=== PATIENT | female | born 2000 | race Caucasian/White ===

== ENCOUNTER 2024-03-26 02:00 | Inpatient (IN) | payer BC, SELFPAY ==
[2024-03-25 19:35] VITALS: BP 141/86
[2024-03-25 19:55] LABS: Urine Albumin Negative (Neg - Trace); Urine Bilirubin Negative (Negative); Urine Character Clear (Clear); Urine Color Yellow; Urine Glucose Negative (Negative); Urine Ketone Negative (Negative); Urine Leukocyte Trace (Negative); Urine Nitrite Negative (Negative); Urine Occult Blood Negative (Negative); Urine Urobilinogen Negative (Neg - 1+)
[2024-03-25 20:05] LABS: Urine Bacteria Few (Negative); Urine Red Blood Cell 0-2 /HPF (0-2); Urine Squamous Cell 0-2 /LPF (Few); Urine White Cell 26-30 /HPF (0-5)
[2024-03-25 21:19] VITALS: BP 125/94
[2024-03-25] MEDS: DILAUDID 0.5 MG IV (21:46)
[2024-03-25] MEDS: ZOFRAN 4 MG IV (21:47)
[2024-03-25] MEDS: NSS 1000 IV (21:47)
[2024-03-25] MEDS: TORADOL 15 MG IV (21:48)
[2024-03-25 22:08] LABS: % Basophils 0.3 % (0-2); % Immature Granulocytes 0.4 % (0-0.5); % Lymphocytes 8.7 % (20.5-51.1); % Monocytes 8.9 % (1.7-9.3); % Neutrophils 81.7 % (42.2-75.2); Absolute Immature Granulocytes 0.1 10^3/uL (0-0.05); Absolute Lymphocytes 1.1 10^3/uL (1.2-3.4); Absolute Monocytes 1.1 10^3/uL (0.1-0.6); Absolute Neutrophils 9.8 10^3/uL (1.4-6.5); Hematocrit 38.4 % (37.0-47.0); Hemoglobin 13.9 g/dL (12.0-16.0); Mean Corp Hgb Conc. 36.2 g/dL (33.0-37.0); Mean Corpuscular Hgb 31.7 pg (27.0-31.0); Mean Corpuscular Volume 87.5 fL (81.0-99.0); Nucleated Red Blood Cells % 0 %; Platelet Count 264 10^3/uL (130-400); Red Blood Cell Count 4.39 10^6/uL (4.20-5.40); Red Cell Dist. Width 12.1 % (11.5-14.5)
[2024-03-25 22:24] LABS: HCG, Serum Qualitative Screen Negative; Lactic Acid 0.7 mmol/L (0.7-2.0)
[2024-03-25 22:27] LABS: ALT (SGPT) 17 U/L (0-35); AST (SGOT) 26 U/L (14-36); Albumin 4.3 g/dl (3.5-5.0); Alkaline Phosphatase 49 U/L (38-126); Blood Urea Nitrogen 7 mg/dl (7-17); Calcium 9.2 mg/dl (8.4-10.2); Carbon Dioxide 22 mmol/L (22-30); Chloride 100 mmol/L (98-107); Glucose 110 mg/dl (70-99); Potassium 3.9 mmol/L (3.5-5.1); Sodium 135 mmol/L (135-145); Total Bilirubin 0.5 mg/dl (0.2-1.3); Total Protein 6.8 g/dl (6.3-8.2); eGFR > 60.00
[2024-03-25 22:46] VITALS: BP 111/72
[2024-03-26] VITALS (17 sets, daily range): BP systolic 95–135; BP diastolic 51–89; BMI 18.8
--- NOTE | 2024-03-26 00:05 | ED.GENMED ---
History of Present Illness
General
Chief Complaint: Flank Pain
Source: patient and family
Exam Limitations: none
Time Seen by Provider: 03/25/24 21:36
Nursing documentation reviewed up to this point in time: agreed with
History of Present Illness
History of Present Illness:
Patient is a 23-year-old female who presents to the emergency department with fever and chills since yesterday and left flank pain for the past 2 days. Patient has been nauseous with occasional dry heaves. Patient denies diarrhea. Patient states
she is freezing at this time. Patient has a history of kidney stones. Patient has had some pain with urination and small amounts of urine but no hematuria. Patient denies any recent illnesses or injuries. Patient's last period was 2 weeks ago.
Past History
Past History
ED Past Medical History: Other (Kidney stones)
ED Past Surgical History: Appendectomy
Social History
Tobacco: Non-smoker
Review of Systems
Review of Systems
All Other Systems: ROS reviewed and negative except as documented in HPI and ROS
Constitutional: Reports fever, fatigue and chills
EENT: Reports no symptoms
Respiratory: Reports no symptoms
Cardiac: Reports no symptoms
ABD/GI: Reports abdominal pain, nausea, vomiting and anorexia; Denies diarrhea or constipated
: Reports flank pain and difficulty voiding; Denies bleeding
Musculoskeletal: Reports back pain
Skin: Reports no symptoms
Neurological: Reports no symptoms
Hematologic/Lymphatic: Reports no symptoms
Psychiatric: Reports no symptoms
Phy Exam
Physical Exam
Physical Exam:
Physical Exam
General: significant distress, alert and appropriate, well nourished, dry mucous membranes
HENT: Normocephalic, supple with no lymphadenopathy, no thyromegaly
Eyes: Clear sclera, conjuctiva without injection
Heart: Regular rhythm and rate. No S3, S4. No murmur.
Lungs: No respiratory distress, no stridor, lung sounds clear and equal bilaterally
Abdomen: Soft, mild lower abdominal tenderness without guarding or rebound, no organomegaly, significant left CVA tenderness, BS good
Neuro: Alert and oriented x 3, CN II - XII intact, no motor focality, no cerebellar dysfunction
Skin: no rash
Psychiatric: well kept. interactive and cooperative
Extremities: No edema, cyanosis, tenderness, Good and equal peripheral pulses.
Course
Orders/Labs/Results
Orders:
Orders
03/25/24 19:42
Urinalysis Reflex To Culture Urgent
Date Specimen was Collected: 03/25/24
Time Specimen was Collected: 19:41
Urine Microscopic Reflex Cult Urgent
Urine Culture Urgent
GRIS Source: U
Specimen Description:
Date Specimen was Collected: 03/25/24
Time Specimen was Collected: 19:41
03/25/24 19:44
EKG [Electrocardiogram (*1)] Urgent
Reason for Study: Tachycardia
EKG- Treatment ONCE
03/25/24 21:41
0.9% Sodium Chloride 1000 ml [Nss] 1,000 ml IV BOLUS
HYDROmorphone [Dilaudid] 0.5 mg IV NOW STA
Ketorolac [Toradol] 15 mg IV NOW STA
Ondansetron Injectable [Zofran] 4 mg IV NOW STA
Test Result ONCE
US Renal With Bladder Urgent
Comment: bladder not full ok, looking at ureteral jets
Reason For Exam: left flank pain
03/25/24 21:46
Complete Blood Count/With Diff Urgent
Comprehensive Metabolic Panel Urgent
HCG, Serum Qualitative Screen Urgent
Lactic Acid Q4H
Comment: CANCEL 2nd LACTIC ACID IF 1st LACTIC ACID IS LESS THAN 2
Blood Culture Routine
GRIS Source: Blood/Venous
Specimen Description:
Blood Culture Urgent
GRIS Source: Blood/Venous
Specimen Description:
03/25/24 23:31
Acetaminophen [Tylenol] 1,000 mg PO NOW STA
HYDROmorphone [Dilaudid] 0.5 mg IV NOW STA
03/26/24 01:45
Lactic Acid Q4H
Comment: CANCEL 2nd LACTIC ACID IF 1st LACTIC ACID IS LESS THAN 2
Abnormal Lab Results
03/25/24 03/25/24
19:42 21:46
WBC 12.0 H 10^3/uL
(4.8-10.8)
MCH 31.7 H pg
(27.0-31.0)
Abs Immat Gran (auto) 0.1 H 10^3/uL
(0-0.05)
Absolute Neuts (auto) 9.8 H 10^3/uL
(1.4-6.5)
Absolute Lymphs (auto) 1.1 L 10^3/uL
(1.2-3.4)
Absolute Monos (auto) 1.1 H 10^3/uL
(0.1-0.6)
Neutrophils % 81.7 H %
(42.2-75.2)
Lymphocytes % 8.7 L %
(20.5-51.1)
Glucose 110 H mg/dl
(70-99)
Leukocyte Esterase Rfl Trace A
(Negative)
Urine WBC (Reflex) 26-30 A /HPF
(0-5)
Urine Bacteria (Reflex) Few A
(Negative)
03/25/24 21:46
03/25/24 21:46
Vital Signs
Initial and Last Documented VS:
Initial Vital Signs
Temp Pulse Resp BP Pulse Ox
100.4 F H 140 20 141/86 97
03/25/24 19:35 03/25/24 19:35 03/25/24 19:35 03/25/24 19:35 03/25/24 19:35
Last Documented Vital Signs
Temp Pulse Resp BP Pulse Ox
99.9 F 93 16 111/72 98
03/25/24 22:46 03/25/24 22:46 03/25/24 22:46 03/25/24 22:46 03/25/24 22:46
*Radiology
Radiology exam reviewed: radiology read reviewed (Radiologist said there is mild hydro nephrosis and hydroureter and no jet on the left but unable to find the stone)
*Pulse Oximetry
Patient hypoxic: no
*EKG
Interpreted by ED Provider?: Yes
EKG Intrepretation Date: 03/26/24
EKG Intrepretation Time: 00:09
Interpretation: normal
Comparison EKG: no comparison EKG present
Heart Rate: 113
Rate: tachycardiac
Rhythm: sinus
Otis: normal axis
Interval: normal interval
QRS Pattern: normal QRS
Ischemia: no ischemia
*Filbert Grower Interpretation
Rate: Filbert Grower- N/A
*Critical Care Note
Total Time (30-74mins, 75-104mins- exclusive of procedures): Not Applicable
ED Attending Note
-
Portions of this chart may have been created with voice recognition software.� Occasional wrong word or��sound alike� substitutions may have occurred due to the inherent limitations of voice recognition software.
Discharge Plan
Departure
Patient Disposition: Admit
Date of Disposition: 03/26/24
Time of Disposition: 00:18
Admit to: Med/Surg
Presentation/result/management discussed w/ accepting MD/DO: Urology
Patient with high blood pressure during this ER visit?: No
Condition: Serious
Covid-19: Not Applicable
Discharge Problem:
Hydroureter on left, Ureterolithiasis, Fever
Referrals:
Young Peña, DO [Family Provider] -
Interventions
Interventions:
*Risk Screen - Suicide Last Done: 03/25/24 19:35
*General Assessment Last Done: 03/25/24 22:30
*Neglect/Abuse Screening Last Done: 03/25/24 22:30
*ED COVID-19 Vaccine History Last Done: 03/25/24 22:30
WE-Mzudge-Idbgvessws Assessment Last Done: 03/25/24 22:31
ED-Female Genitourinary Assessment Last Done: 03/25/24 22:37
Discharge Date and Time
Print Language: SWISS
[2024-03-26] MEDS: TYLENOL 1000 MG PO (00:19)
[2024-03-26] MEDS: DILAUDID 0.5 MG IV ×2 (00:20→07:40)
--- NOTE | 2024-03-26 00:48 | HPS.HSE ---
Family Physician
-
Family Physician: Young Peña
Chief Complaint
-
Abd Pain, Fevers / Chills
History of Present Illness
Patient is a 23y F with PMH significant for kidney stones who presents to ED complaining of flank pain, nausea, fevers and chills. Patient states that she initially developed L flank pain on Saturday. She has had similar discomfort multiple times
in the past related to kidney stones. She states that she has a 'large kidney stone' on the L that was diagnosed 4 years ago and has not passed.
Today, patient noted significant increase in her pain, fevers / chills, nausea without emesis and general malaise.
Patient states that she has never had these accompanying symptoms in the past.
She has never had ureteroscopy / intervention for kidney stones in the past.
Medical History
Past Medical History
Past Medical History: Reports Other
Additional Past Medical History:
ADHD
Bipolar Depression
Past Surgical History: Reports Other
Additional Past Surgical History:
Appendectomy
Social History
Tobacco: Vaping (Daily vaping.)
Alcohol: Occasional
Drug: Marijuana (Occasional marijuana smoker. No other recreational drugs.)
Family History
Family History: Not pertinent
Allergies / Home Medications
Allergies reflects when Allergies were last updated in [facility].
Home Medications with original date entered in [facility]
Allergy/Medication List:
Allergies
Allergy/AdvReac Type Severity Reaction Status Date / Time
sulfamethoxazole Allergy Hives Verified 03/25/24 19:39
[From Bactrim]
trimethoprim [From Bactrim] Allergy Hives Verified 03/25/24 19:39
Home Medications
dextroamphetamine-amphetamine 20 mg tablet (Adderall) 20 mg PO DAILY 03/26/24
lamotrigine 100 mg tablet (Lamictal) 100 mg PO DAILY 03/26/24
Review of Systems
-
History Source: Patient
A 12 point ROS was completed and negative except as noted: Yes
Constitutional: Reports Fever, Fatigue and Chills
EENT: Denies Sore Throat
Respiratory: Denies Cough or Trouble Breathing
Cardiac: Reports Chest Pain; Denies Diaphoresis or Palpitations
Abdomen/GI: Reports Abdominal Pain and Nausea; Denies Vomiting, Diarrhea or Constipated
: Reports Flank Pain; Denies Dysuria, Frequency or Bleeding
Neurological: Reports Headache; Denies Dizzy
Psych: Denies Depression or Anxiety
Physical Exam
Vital Signs
Vital Signs
Temp Pulse Resp BP Pulse Ox
99.9 F 92 18 115/75 99
03/25/24 22:46 03/26/24 00:16 03/26/24 00:16 03/26/24 00:16 03/26/24 00:16
Physical Exam
General: Other (23y F in mild distress due to pain.)
HEENT: Moist mucous membranes and PERRLA
Respiratory: Clear; No Wheezes, Rales or Rhonchi
Cardiac: S1/S2 and Regular Rhythm; No Murmur
GI: Soft, Non Distended, Normal Bowel Sounds and Other (Pos tenderness L abdomen with voluntary guarding.)
Genito-urinary: Costovertebral angle tend (Left)
Musculoskeletal: No Clubbing, No Cyanosis and No Edema
Neuro: AO x 3
Laboratory Results
-
03/25/24 21:46
03/25/24 21:46
Laboratory Results
Lactic Acid 0.7 mmol/L (0.7-2.0) 03/25/24 21:46
Total Bilirubin 0.5 mg/dl (0.2-1.3) 03/25/24 21:46
AST 26 U/L (14-36) 03/25/24 21:46
ALT 17 U/L (0-35) 03/25/24 21:46
Alkaline Phosphatase 49 U/L (38-126) 03/25/24 21:46
Impression/Plan
-
A/P: Patient is an 23y F with PMH significant for kidney stones who presents to ED c/o L flank pain since Saturday and fevers / chills, nausea today.
Left Ureteral Stone / Obstructive Uropathy
UTI
Sepsis secondary to the above
- Admit for further evaluation and treatment.
- US suggests L mid-ureteral stone with associated hydro.
- CT scan ordered / pending in the ED.
- Patient presents with fever, leukocytosis, tachycardia and UA / symptoms consistent with infection.
- Continue IV abx pending culture data.
- Supportive care including pain control, IVFs, antiemetics, etc.
- Urology to evaluate patient this evening - likely for OR / stone removal / stent.
- Follow for clinical improvement.
Bipolar Depression
- Stable. Continue Lamictal.
ADHD
- Stable. Can hold Adderall acutely.
DVT Prophylaxis: SCDs
Code Status: Full
[2024-03-26] MEDS: MAXIPIME 2000 MG IV ×4 (01:06→23:01)
--- NOTE | 2024-03-26 01:10 | CONS.URO ---
Consultation
-
Performing Provider: Peffer
Reason for Consultation: Sepsis, ureteral stone
Medical History
History of Present Illness
23F with history of kidney stones in the past
Presenting with 2 days of L flank pain and fevers, febrile to 102.5 in ED
US showing L hydro
CT showing 6mm L distal ureteral stone
Past Medical History
Past Medical History: Other (Kidney stones, ADHD Bipolar Depression)
Social History
Tobacco: Vaping
Alcohol: None
Drug: Marijuana
Family History
Family History: Reviewed & Not Pertinent
Allergies/Home Medications
Allergies
Allergy/AdvReac Type Severity Reaction Status Date / Time
metoclopramide [From Reglan] Allergy Unknown Verified 03/26/24 00:55
sulfamethoxazole Allergy Hives Verified 03/25/24 19:39
[From Bactrim]
trimethoprim [From Bactrim] Allergy Hives Verified 03/25/24 19:39
Home Medications
�Medication �Instructions �Recorded �Confirmed �Type
dextroamphetamine-amphetamine 20 20 mg PO DAILY 03/26/24 03/26/24 History
mg tablet (Adderall)
lamotrigine 100 mg tablet 100 mg PO DAILY 03/26/24 03/26/24 History
(Lamictal)
Physical Exam
Vital Signs
Vital Signs
Temp Pulse Resp BP Pulse Ox
99.9 F 92 18 115/75 99
03/25/24 22:46 03/26/24 00:16 03/26/24 00:16 03/26/24 00:16 03/26/24 00:16
Lab / Testing Results
Laboratory Results
03/25/24 21:46
03/25/24 21:46
Physical Exam
General: Well Developed and Well Nourished
Genito-urinary: Costovertebral Angle Tend
Neuro: AO x 3
Psych: Calm and Intact Judgement
Assessment / Plan
-
23F with fevers and L ureteral stone
- OR for L ureteral stent
- Broad spectrum antibiotics
- Urine and blood cultures
--- NOTE | 2024-03-26 02:04 | W.IMMPOSTOP ---
Surgical Immed Post Op Note
-
Primary Surgeon: Peffer
Assisting Surgeon: none
Pre-op Diagnosis: sepsis, L ureteral stone
Post-op Diagnosis: same
Procedure Performed: cystoscopy, L ureteral stent
Anesthesia Type: general
Specimen / Cultures: urine from L kidney Cx
Estimated Blood Loss: none
Complications: none
Operative Findings: impacted stone
[2024-03-26] MEDS: DILAUDID 0.25 MG IV ×2 (02:35→22:57)
[2024-03-26] MEDS: DETROL LA 4 MG PO (03:01)
[2024-03-26] MEDS: Pyridium 200 MG PO ×4 (03:01→22:57)
--- NOTE | 2024-03-26 03:30 | PTCARENOTE ---
Pt admitted to 436-2 from PACU. AAOx3. c/o /10 pelvic pressure/discomfort. VSS. Ambulated to bathroom with standby. Voided 225 ccs jean/orange urine, urine strained. Call ang within reach.
[2024-03-26] MEDS: NSS 1000 IV ×3 (03:40→16:18)
[2024-03-26] MEDS: STERILE WATER FOR INJECTION 10 ML IV ×3 (07:57→23:01)
[2024-03-26 08:38] LABS: Hematocrit 37.3 % (37.0-47.0); Hemoglobin 13.4 g/dL (12.0-16.0); Mean Corp Hgb Conc. 35.9 g/dL (33.0-37.0); Mean Corpuscular Hgb 32.8 pg (27.0-31.0); Mean Corpuscular Volume 91.2 fL (81.0-99.0); Mean Platelet Volume 9.6 fL (7.4-10.4); Platelet Count 229 10^3/uL (130-400); Red Blood Cell Count 4.09 10^6/uL (4.20-5.40); Red Cell Dist. Width 12.3 % (11.5-14.5); White Blood Cell Count 10.3 10^3/uL (4.8-10.8)
--- NOTE | 2024-03-26 08:50 | W.PN.HOSP.TC ---
Today's Communication/Plan
-
Antibiotics. Pain control. Urology reeval.
Assessment / Plan
Assessment / Plan
Physical exam:
General: Well Developed, Well Nourished and No Apparent Distress
HEENT: Normocephalic, Atraumatic and Moist Mucous Membranes
Respiratory: Clear to Auscultation; Negative Wheezes, Rales or Rhonchi
Cardiac: Regular Rhythm and S1/S2
GI: Tenderness left flank area. Soft, tender and Nondistended
Musculoskeletal: No Clubbing, No Cyanosis and No Edema
Neuro: Awake, Alert and Oriented
Psych: Calm
A/P:
Left Ureteral Stone / Obstructive Uropathy
UTI
Sepsis secondary to the above
- Status post cystoscopy and left ureteral stent by urology
- Continue antibiotics and pain control-increased pain meds and added some other. Discussed with urology via [facility] text today.
Prior to today:
- Patient presents with fever, leukocytosis, tachycardia and UA / symptoms consistent with infection.
- Continue IV abx pending culture data.
- Supportive care including pain control, IVFs, antiemetics, etc.
- Urology to evaluate patient this evening - likely for OR / stone removal / stent.
- Follow for clinical improvement.
Bipolar Depression
- Stable. Continue Lamictal.
ADHD
- Stable. Can hold Adderall acutely.
DVT Prophylaxis: SCDs
Code Status: Full
Anticipated Discharge: 24 - 48 hours
Subjective/Interval History
-
Date of Service: March 26, 2024
Patient was having increased flank pain this morning. After few adjustments and after discussion with urology pain has improved. Afebrile
Objective Data
-
Labs:
Laboratory Results
03/25/24 03/26/24
21:46 07:31
WBC 12.0 H 10.3
Hgb 13.9 13.4
Hct 38.4 37.3
Plt Count 264 229
Sodium 135 Pending
Potassium 3.9 Pending
Chloride 100 Pending
Carbon Dioxide 22 Pending
BUN 7 Pending
Creatinine 0.7 Pending
Glucose 110 H Pending
Calcium 9.2 Pending
Total Bilirubin 0.5
AST 26
ALT 17
Alkaline Phosphatase 49
Vital Signs:
Vital Signs
Temp Pulse Resp BP Pulse Ox
98 F 52 16 118/80 99
03/26/24 07:25 03/26/24 07:25 03/26/24 07:25 03/26/24 07:25 03/26/24 07:25
I&O
03/25/24 03/26/24 03/27/24
06:59 06:59 06:59
Intake Total 800 / 800
Output Total 225 / 225
Balance 575 / 575
[2024-03-26 09:00] LABS: Blood Urea Nitrogen 10 mg/dl (7-17); Calcium 8.5 mg/dl (8.4-10.2); Carbon Dioxide 24 mmol/L (22-30); Chloride 104 mmol/L (98-107); Estimated Creatinine Clearance 119 ml/min; Glucose 135 mg/dl (70-99); Potassium 4.5 mmol/L (3.5-5.1); Sodium 138 mmol/L (135-145); eGFR > 60.00
[2024-03-26] MEDS: FLOMAX 0.4 MG PO (09:24)
[2024-03-26] MEDS: LAMICTAL 100 MG PO (09:24)
[2024-03-26] MEDS: DILAUDID 1 MG IV (10:59)
[2024-03-26] MEDS: TORADOL 30 MG IV ×2 (11:50→19:33)
[2024-03-26] MEDS: MORPHINE SULFATE 2 MG IV ×2 (14:43→19:35)
--- NOTE | 2024-03-26 14:50 | CM ---
Patient lives with spouse and 3 children in a 1 story home with 5 steps to enter, patient is independent with adl's and ambulation, no dme, patient drives, home when stable no needs.
PCP: Dr. Peña
Pharmacy: [facility].
Plan; Home no needs when stable.
[2024-03-27] VITALS (23 sets, daily range): BP systolic 98–129; BP diastolic 59–91
[2024-03-27] MEDS: MORPHINE SULFATE 2 MG IV ×3 (00:04→08:56)
[2024-03-27] MEDS: TORADOL 30 MG IV ×3 (04:14→19:56)
[2024-03-27] MEDS: NSS 1000 IV ×2 (04:15→17:57)
[2024-03-27] MEDS: LAMICTAL 100 MG PO (08:45)
[2024-03-27] MEDS: MAXIPIME 2000 MG IV (08:45)
[2024-03-27] MEDS: Pyridium 200 MG PO ×3 (08:45→23:21)
[2024-03-27] MEDS: FLOMAX 0.4 MG PO (08:45)
[2024-03-27] MEDS: STERILE WATER FOR INJECTION 10 ML IV (08:46)
--- NOTE | 2024-03-27 09:18 | W.PN.URO.CBU ---
Today's Communication / Plan
-
Renal US
Possible ureteroscopy today
Assessment / Plan
-
23F with fever/sepsis associated with obstructing L distal ureteral stone
- Severe stent colic/pain which is greater than typical
- Possible stent obstruction due to large impacted distal stone
- Renal US to eval for persistent
- NPO for possible OR today for ureteroscopy, laser lithotripsy, stent exchange
- Continue antibiotics pending cultures
- Blood cx negative so far
Diagnosis
-
Date of Service: March 27, 2024
-
Patient Diagnosis:
L ureteral stone
Fever/sepsis
Post Op Day: s/p ureteral stent 03/26
Subjective
-
ongoing severe flank and groin pain requiring narcotics
Objective
-
Vital Signs
Temp Pulse Resp BP Pulse Ox
98.4 F 68 18 117/74 97
03/27/24 07:17 03/27/24 07:17 03/27/24 07:17 03/27/24 07:17 03/27/24 07:17
Intake and Output
03/26/24 03/27/24 03/28/24
06:59 06:59 06:59
Intake Total 800 / 800 240 / 240
Output Total 225 / 225 750 / 750
Balance 575 / 575 -510 / -510
Intake:
Oral fluids 240 / 240
IV fluids (Total) 800 / 800 0 / 0
normosol 200 / 200
IV piggybacks 0 / 0
Output:
Urine, Voided 225 / 225 750 / 750
Other:
Number of approximated MODERATE 3
amounts of urine
Laboratory Results
03/26/24 07:31
03/26/24 07:31
Physical Exam
-
General - well developed, well nourished, moderate pain
Chest - clear
Abdomen - soft, non-tender
Skin - warm & dry with no rash
Neuro - AOx3, no motor deficits
--- NOTE | 2024-03-27 09:32 | W.PN.HOSP.TC ---
Today's Communication/Plan
-
IV antibiotics. Pain control. OR today.
Assessment / Plan
Assessment / Plan
Physical exam:
General: Well Developed, Well Nourished and No Apparent Distress
HEENT: Normocephalic, Atraumatic and Moist Mucous Membranes
Respiratory: Clear to Auscultation; Negative Wheezes, Rales or Rhonchi
Cardiac: Regular Rhythm and S1/S2
GI: Tenderness left flank area. Soft, tender and Nondistended
Musculoskeletal: No Clubbing, No Cyanosis and No Edema
Neuro: Awake, Alert and Oriented
Psych: Calm
A/P:
Left Ureteral Stone / Obstructive Uropathy
UTI
Sepsis secondary to the above
- Status post cystoscopy and left ureteral stent by urology. Continues to have pain and urology will take her to the OR today. Discussed with urology again today on 03/27.
- Continue antibiotics and pain control-increased pain meds and added some other. Discussed with urology via [place] text on 03/26.
-Urine culture with Enterococcus and will change antibiotics to IV ampicillin.
-Updated mother at bedside
Prior to today:
- Patient presents with fever, leukocytosis, tachycardia and UA / symptoms consistent with infection.
- Continue IV abx pending culture data.
- Supportive care including pain control, IVFs, antiemetics, etc.
- Urology to evaluate patient this evening - likely for OR / stone removal / stent.
- Follow for clinical improvement.
Bipolar Depression
- Stable. Continue Lamictal.
ADHD
- Stable. Can hold Adderall acutely.
DVT Prophylaxis: SCDs
Code Status: Full
Total time spent on today's encounter was 52 minutes which included time spent in counseling the patient/family regarding diagnosis and treatment plan as listed above, goals of care, and symptom management. Case was discussed with nursing staff,
specialists, and care coordinators/case management. All labs and imaging personally reviewed by me. Remainder the time spent in detailed review of previous records, lab data, imaging, and other medical provider documentation.
Anticipated Discharge: 24 - 48 hours
Subjective/Interval History
-
Date of Service: March 27, 2024
Patient continues to have pain in her left flank area today. She is very teary by the time of my evaluation and in distress because of pain. Discussed with urology and she will be taken to the OR.
Objective Data
-
Vital Signs:
Vital Signs
Temp Pulse Resp BP Pulse Ox
98.4 F 68 18 117/74 97
03/27/24 07:17 03/27/24 07:17 03/27/24 07:17 03/27/24 07:17 03/27/24 07:17
I&O
03/26/24 03/27/24 03/28/24
06:59 06:59 06:59
Intake Total 800 / 800 240 / 240
Output Total 225 / 225 750 / 750
Balance 575 / 575 -510 / -510
--- NOTE | 2024-03-27 11:59 | PTCARENOTE ---
single set of surgical wipes completed. Patient gown changed. Patient reports slef bathing this AM. Mother at bedside. Patient sent to OR
--- NOTE | 2024-03-27 13:19 | W.IMMPOSTOP ---
Surgical Immed Post Op Note
-
Primary Surgeon: Peffer
Assisting Surgeon: none
Pre-op Diagnosis: L ureteral stone, intractable pain
Post-op Diagnosis: same
Procedure Performed: cystoscopy, L ureteroscopy, laser lithotripsy, stent exchange
Anesthesia Type: general
Specimen / Cultures: stone analysis
Estimated Blood Loss: none
Complications: none
Operative Findings: Stent on string. Stone removed
[2024-03-27] MEDS: AMPICILLIN 108 MG IV ×3 (13:49→23:21)
[2024-03-27] MEDS: STERILE WATER FOR INJECTION IV ×2 (16:16→23:43)
[2024-03-28] MEDS: TORADOL 30 MG IV ×2 (03:00→11:46)
[2024-03-28 03:07] VITALS: BP 125/86
[2024-03-28] MEDS: AMPICILLIN 108 MG IV ×3 (06:31→16:33)
[2024-03-28 07:42] VITALS: BP 136/87
[2024-03-28 08:34] LABS: % Basophils 0.1 % (0-2); % Eosinophils 0.7 % (0-6); % Immature Granulocytes 0.3 % (0-0.5); % Monocytes 8.7 % (1.7-9.3); % Neutrophils 69.2 % (42.2-75.2); Absolute Eosinophils 0.1 10^3/uL (0-0.7); Absolute Lymphocytes 1.4 10^3/uL (1.2-3.4); Absolute Monocytes 0.6 10^3/uL (0.1-0.6); Absolute Neutrophils 4.7 10^3/uL (1.4-6.5); Hematocrit 32.6 % (37.0-47.0); Hemoglobin 11.5 g/dL (12.0-16.0); Mean Corp Hgb Conc. 35.3 g/dL (33.0-37.0); Mean Corpuscular Hgb 32.5 pg (27.0-31.0); Mean Corpuscular Volume 92.1 fL (81.0-99.0); Mean Platelet Volume 9.7 fL (7.4-10.4); Nucleated Red Blood Cells % 0 %; Platelet Count 259 10^3/uL (130-400); Red Blood Cell Count 3.54 10^6/uL (4.20-5.40); White Blood Cell Count 6.8 10^3/uL (4.8-10.8)
[2024-03-28 08:42] VITALS: BP 136/87
--- NOTE | 2024-03-28 08:57 | W.PN.HOSP.TC ---
Today's Communication/Plan
-
IV antibiotics. Pain control.
Assessment / Plan
Assessment / Plan
Physical exam:
General: Well Developed, Well Nourished and Apparent Distress due to pain
HEENT: Normocephalic, Atraumatic and Moist Mucous Membranes
Respiratory: Clear to Auscultation; Negative Wheezes, Rales or Rhonchi
Cardiac: Regular Rhythm and S1/S2
GI: Tenderness left flank area. Soft, tender and Nondistended
Musculoskeletal: No Clubbing, No Cyanosis and No Edema
Neuro: Awake, Alert and Oriented
Psych: Calm
A/P:
Left ureteral stone:
Status post cystoscopy and left ureteral stent on 03/26
She was taken to the OR again and Status post cystoscopy and left stone manipulation with replacement of left ureteral stent on 03/27
Continues to have pain but felt to be related to stent colic--> discussed in person with urology today and he recommended continuing pain medications and add Pyridium and will use also a dose of Valium and reevaluate.
Discussed with RN
Seen renal ultrasound on 03/25, CT scan of the abdomen with 03/26, abdominal x-ray on 03/26, and abdominal x-ray on 03/27.
Continue to monitor closely
Sepsis due to Enterococcus UTI:
Continue IV ampicillin
Blood cultures no growth
Enterococcus faecalis on urine culture and reviewed sensitivity
Mild anemia:
Dilutional component as well
Continue to monitor hemoglobin
Bipolar:
Continue Lamictal
ADHD:
Holding Adderall
DVT prophylaxis:
SCDs
CODE STATUS:
Full code
Total time spent on today's encounter was 52 minutes which included time spent in counseling the patient/family regarding diagnosis and treatment plan as listed above, goals of care, and symptom management. Case was discussed with nursing staff,
specialists, and care coordinators/case management. All labs and imaging personally reviewed by me. Remainder the time spent in detailed review of previous records, lab data, imaging, and other medical provider documentation.
Anticipated Discharge: 24 - 48 hours
Subjective/Interval History
-
Date of Service: March 28, 2024
Patient is having more flank pain again today. No fever.
Objective Data
-
Labs:
Laboratory Results
03/28/24
07:52
WBC 6.8
Hgb 11.5 L
Hct 32.6 L
Plt Count 259
Sodium Pending
Potassium Pending
Chloride Pending
Carbon Dioxide Pending
BUN Pending
Creatinine Pending
Glucose Pending
Calcium Pending
Vital Signs:
Vital Signs
Temp Pulse Resp BP Pulse Ox
98.3 F 65 18 136/87 97
03/28/24 07:42 03/28/24 07:42 03/28/24 07:42 03/28/24 07:42 03/28/24 07:42
I&O
03/27/24 03/28/24 03/29/24
06:59 06:59 06:59
Intake Total 240 / 240 1160 / 1160
Output Total 750 / 750
Balance -510 / -510 1160 / 1160
[2024-03-28 09:02] LABS: Blood Urea Nitrogen 14 mg/dl (7-17); Calcium 8.6 mg/dl (8.4-10.2); Carbon Dioxide 24 mmol/L (22-30); Chloride 107 mmol/L (98-107); Estimated Creatinine Clearance > 125 ml/min; Glucose 98 mg/dl (70-99); Potassium 4.2 mmol/L (3.5-5.1); Sodium 141 mmol/L (135-145); eGFR > 60.00
[2024-03-28] MEDS: STERILE WATER FOR INJECTION IV ×2 (09:46→16:31)
[2024-03-28] MEDS: MORPHINE SULFATE 2 MG IV (10:15)
[2024-03-28] MEDS: LAMICTAL 100 MG PO (10:18)
[2024-03-28] MEDS: FLOMAX 0.4 MG PO (10:18)
[2024-03-28] MEDS: Pyridium 200 MG PO ×2 (10:18→16:33)
--- NOTE | 2024-03-28 11:02 | W.PN.URO.CBU ---
Today's Communication / Plan
-
toradol if pain persists try and not use morphine or any iv narcotic unless pt has no response to toradol
Assessment / Plan
-
23F with fever/sepsis associated with obstructing L distal ureteral stone
- Severe stent colic/pain which is greater than typical
- iv toradol try and discharge as stavble urologically
- Continue antibiotics pending cultures
- Blood cx negative so far
Diagnosis
-
Date of Service: March 28, 2024
-
Patient Diagnosis:
Post Op Day:
Patient Diagnosis:
L ureteral stone
Fever/sepsis
Post Op Day: s/p ureteral stent 03/26
Subjective
-
stent pain and more pain when stent removed
Objective
-
Vital Signs
Temp Pulse Resp BP Pulse Ox
98.3 F 65 18 136/87 97
03/28/24 07:42 03/28/24 07:42 03/28/24 07:42 03/28/24 07:42 03/28/24 07:42
Intake and Output
03/27/24 03/28/24 03/29/24
06:59 06:59 06:59
Intake Total 240 / 240 1160 / 1160
Output Total 750 / 750
Balance -510 / -510 1160 / 1160
Intake:
Oral fluids 240 / 240 960 / 960
IV fluids (Total) 0 / 0 200 / 200
ampicillin 100 / 100
normosol 100 / 100
IV piggybacks 0 / 0
Output:
Urine, Voided 750 / 750
Other:
Number of approximated MODERATE 3 3
amounts of urine
Number of approximated LARGE 4
amounts of urine
Laboratory Results
03/28/24 07:52
03/28/24 07:52
Review of Systems
-
: Flank Pain
Physical Exam
-
General - well developed, well nourished, no acute distress
Chest - clear bilaterally
Abdomen - soft, non-tender, positive bowel sounds, no CVAT, no incisional pain or distention
Genitalia - normal
Rectal - normal
Skin - warm & dry with no rash
Neuro - AOx3, no motor deficits
Extremities - no clubbing, no cyanosis, no edema
Incision - clean, dry
Dressing - clean, dry, intact
Care Review
Data Reviewed
Discussed with: Nursing
CT Scan: Image Pers Reviewed
[2024-03-28 11:43] VITALS: BP 121/82
[2024-03-28] MEDS: VALIUM INJECTION 5 MG IV (12:25)
[2024-03-28 15:45] VITALS: BP 128/83
--- NOTE | 2024-03-29 09:13 | W.DCSUMMARY ---
Discharge Summary
Discharge Data
Date of Admission: 03/26/24
Date of Discharge: 03/28/24
-
Pending Results: No
Hospital Course
Patient 23 years old female with history of bipolar, ADHD presented to the hospital with left ureteral stent and sepsis. Patient was started on IV fluids and broad-spectrum IV antibiotics. She underwent cystoscopy and left ureteral stent on 03/26.
Patient continued to have persistent pain the following day and she had an ultrasound and also she was taken again to the OR by urology and she had a cystoscopy and left stone manipulation with replacement of the left ureteral stent on 03/27. She
also had multiple images including x-rays and CT scans of the abdomen and all revealed that the stent was in good position. She also had pain again following day after the second urological procedure. Urology explained that this was most likely
colic from stent but it was not recommended to go to the OR again and conservative treatment was recommended. Her pain subsided later down the road. Her IV antibiotics were tailored for urine culture growing Enterococcus. Patient actually
requested that she wanted to go home. Urology felt okay for her to go home today. She has been discharged in relatively stable condition today. Initially there were some issues with transmission of her medications to her pharmacy but it was able
to be resolved and her medication has been transmitted to her pharmacy, including Tylenol and antibiotics to complete course as outpatient. No need for narcotics or benzodiazepines upon discharge. She has been discharged in stable condition today.
Discharge duration: 35 minutes
Discharge Plan
-
Patient Disposition: Home (Routine Discharge)
Discharge Diagnosis/Procedures: Urinary tract infection. Ureteral stone.
Diet: Regular
Activity: As tolerated
Blood Work: PCP to order CBC, BMP within 1 week
Referrals:
Joey Cunningham MD [Active] - in one to two weeks
Young Peña DO [Family Provider] - in less than 1 week
Prescriptions:
New
amoxicillin 500 mg capsule
500 mg PO TID 5 Days Qty: 15 0RF
acetaminophen [Tylenol] 325 mg capsule
650 mg PO Q6H PRN (Reason: fever or pain) Qty: 20 0RF
Continued
dextroamphetamine-amphetamine [Adderall] 20 mg Tablet
20 mg PO DAILY
lamotrigine [Lamictal] 100 mg Tablet
100 mg PO DAILY
Discharge Orders:
Discharge Patient (As Directed); Ordered 03/28/24
Ordered By: Boubacar Sam
Discharge Date and Time
Discharge Date/Time: 03/28/24 18:30
Print Language: PANAMANIAN
== END 2024-03-28 18:30 | disposition home or self-care (01) | DRG 854 ==
LOC: 4 WEST ACU 02:00
PROVIDERS: Emergency Medicine; ADMITTING PHYSICIAN Hospitalist; ATTENDING PHYSICIAN Hospitalist; CONSULT PHYSICIAN Urology; EMERGENCY PHYSICIAN Emergency Medicine; FAMILY PHYSICIAN Family Medicine
PROC: 0T778DZ Dilation of Left Ureter with Intraluminal Device, Via Natural or Artificial Opening Endoscopic (ICD-10-PCS; 2024-03-25)
PROC: 0TC78ZZ Extirpation of Matter from Left Ureter, Via Natural or Artificial Opening Endoscopic (ICD-10-PCS; 2024-03-25)
DX: A41.9 Sepsis, unspecified organism (principal); F31.30 Bipolar disorder, current episode depressed, mild or moderate severity, unspecified; N13.6 Pyonephrosis; N20.2 Calculus of kidney with calculus of ureter; F90.9 Attention-deficit hyperactivity disorder, unspecified type
CPT/HCPCS: 74018; 74176; 76000; 76770; 80048; 80053; 81003; 81015; 82365; 83605; 84703; 85025; 85027; 87040; 87077; 87086; 87186; 93005; 96361; 96374; 96375; 96376; 99285; A4300; C1758; C1769; C1894; C2617

== ENCOUNTER 2024-08-06 19:18 | Emergency (ER) | payer MEDICARE, SELFPAY ==
[2024-08-06 19:18] VITALS: BMI 23.3
[2024-08-06 19:20] VITALS: BP 132/89
[2024-08-06 20:21] VITALS: BP 118/74
--- NOTE | 2024-08-06 22:03 | ED.GENMED ---
History of Present Illness
General
Chief Complaint: Skin Problem
Source: patient and family
Time Seen by Provider: 08/06/24 21:47
Nursing documentation reviewed up to this point in time: agreed with
History of Present Illness
History of Present Illness:
She does note some tingling down her arms 24-year-old female presents to the emergency department with 'a bump on her back' that radiates through to her abdomen. Patient states that the lump has been present for the last few days. Patient now
states that she has tingling down her arms. Patient states that she started to develop the symptoms after her Lamictal was increased. She stopped taking her Lamictal several weeks ago at the advice of her physician. Patient lives in [place].
Mom went to get her states that they went to 2 other hospitals were not seen due to the prolonged wait times. Patient denies chest pain or shortness of breath.
Past History
Past History
ED Past Medical History: Other (Kidney stones)
ED Past Surgical History: Appendectomy
Social History
Tobacco: Non-smoker
Review of Systems
Review of Systems
Allergies reviewed?: Yes
All Other Systems: ROS reviewed and negative except as documented in HPI and ROS
Constitutional: Reports no symptoms
EENT: Reports no symptoms
Respiratory: Reports no symptoms
Cardiac: Reports no symptoms
ABD/GI: Reports no symptoms
: Reports no symptoms
Musculoskeletal: Reports joint pain, muscle pain and back pain
Skin: Reports no symptoms
Neurological: Reports no symptoms
Endocrine: Reports no symptoms
Hematologic/Lymphatic: Reports no symptoms
Psychiatric: Reports no symptoms
Phy Exam
General Physical Exam
General Presentation: well appearing and no apparent distress
General Skin: warm and dry
General Habitus: normal
General Mental: alert
General Hydration: appears well hydrated
ENT Exam
ENT Exam: EOMI, pharynx normal, neck supple and normocephalic
Eye Exam
Eye Exam: PERRL, cornea clear and conjunctiva normal
Cardiovascular Exam
Cardiovascular Exam: regular rate/rhythm, no edema, no murmur and normal peripheral pulses
Pulmonary Exam
Pulmonary Exam: lungs clear, no respiratory distress, no rales, no crackles, no rhonchi, no stridor, no wheezing and no cough
Gastrointestinal Exam
Gastrointestinal Exam: normal bowel sounds, non tender, soft, no organomegaly, no pulsatile mass and non distended
Neurological Exam
Neurological Exam: alert, oriented x3, no motor deficits and speech normal
Musculoskeletal Exam
Musculoskeletal Exam: full ROM and no edema
Skin Exam
Skin Exam: normal color, warm/dry, no rash, no petechia and other (Tenderness to palpation at approximately T6. No appreciable mass noted.)
Psychiatric Exam
Psychiatric Exam: normal mood/affect
Course
Orders/Labs/Results
Orders:
Orders
08/06/24 22:03
Test Result ONCE
08/06/24 22:07
CRP [C-Reactive Protein] Urgent
Complete Blood Count/With Diff Urgent
Comprehensive Metabolic Panel Urgent
Erythrocyte Sed Rate Urgent
HCG, Serum Qualitative Screen Urgent
Lipase Urgent
08/06/24 22:28
CT Abd/pelvis W Iv Cont Urgent
Comment:
Reason For Exam: upper abd pain, with back pain
Abnormal Lab Results
08/06/24
22:07
MCH 31.8 H pg
(27.0-31.0)
08/06/24 22:07
08/06/24 22:07
Vital Signs
Initial and Last Documented VS:
Initial Vital Signs
Temp Pulse Resp BP Pulse Ox
98.6 F 101 18 132/89 98
08/06/24 19:20 08/06/24 19:20 08/06/24 19:20 08/06/24 19:20 08/06/24 19:20
Last Documented Vital Signs
Temp Pulse Resp BP Pulse Ox
98.6 F 84 16 118/74 99
08/06/24 19:20 08/06/24 20:21 08/06/24 20:21 08/06/24 20:21 08/06/24 20:21
*Critical Care Note
Total Time (30-74mins, 75-104mins- exclusive of procedures): Not Applicable
ED Attending Note
-
Portions of this chart may have been created with voice recognition software.� Occasional wrong word or��sound alike� substitutions may have occurred due to the inherent limitations of voice recognition software.
Discharge Plan
Departure
Patient Disposition: Home (Routine Discharge)
Date of Disposition: 08/06/24
Time of Disposition: 23:21
Patient with high blood pressure during this ER visit?: No
Condition: Good
Discharge Problem:
Back pain, Abdominal pain
Instructions: Abdominal pain in adults - Discharge instructions, Peripheral neuropathy, Back Pain
Prescriptions:
No Action
dextroamphetamine-amphetamine [Adderall] 20 mg Tablet
20 mg PO DAILY
lamotrigine [Lamictal] 100 mg Tablet
100 mg PO DAILY
amoxicillin 500 mg capsule
500 mg PO TID 5 Days Qty: 15 0RF
acetaminophen [Tylenol] 325 mg capsule
650 mg PO Q6H PRN (Reason: fever or pain) Qty: 20 0RF
Referrals:
Avelina Marie DO [Family Provider] -
Activity Restrictions/Additional Instructions:
It was a pleasure meeting you and taking part in your care. We hope for your continued healing and wellness.
Please read discharge instructions in their entirety. However, they are for general education and may not describe your exact diagnosis at discharge. Information on your ER visit and medical conditions were discussed with you along with appropriate
follow up information...
If indicated, please take your medications as instructed and indicated on discharge paperwork.
Please schedule a follow up appointment as directed. Call to schedule an appointment
Please return to the emergency department with ANY change in, persisting, or worsening of symptoms. If any of your symptoms do not improve, or persist, or become more severe within 6-12 hours, please return to the emergency department for further
care.
Please return to the emergency department if you develop a headache, neck pain/stiffness, fever greater than 100.4F, chest pain, shortness of breath, persistent nausea, vomiting, slurred speech, difficulty walking, numbness/tingling, weakness, signs
of infection or any other symptoms that are worrisome to you.
If you have any questions or concerns please do not hesitate to call the Hospital at or E-mail me directly at [email or web address]
Interventions
Interventions:
*Risk Screen - Suicide Last Done: 08/06/24 19:20
*General Assessment Last Done: 08/06/24 19:20
*Neglect/Abuse Screening Last Done: 08/06/24 19:20
ED- Fall Risk Assessment Last Done: 08/06/24 20:15
*ED COVID-19 Vaccine History Last Done: 08/06/24 19:20
*Nursing Disposition Last Done: 08/06/24 23:33
ED-Skin Assessment Last Done: 08/06/24 20:15
Discharge Date and Time
Discharge Date/Time: 08/06/24 23:33
Print Language: SAMI
[2024-08-06 22:24] LABS: % Basophils 0.3 % (0-2); % Eosinophils 0.8 % (0-6); % Immature Granulocytes 0.1 % (0-0.5); % Lymphocytes 26.4 % (20.5-51.1); % Monocytes 3.9 % (1.7-9.3); % Neutrophils 68.5 % (42.2-75.2); Absolute Eosinophils 0.1 10^3/uL (0-0.7); Absolute Lymphocytes 2.5 10^3/uL (1.2-3.4); Absolute Monocytes 0.4 10^3/uL (0.1-0.6); Absolute Neutrophils 6.4 10^3/uL (1.4-6.5); Hematocrit 40.8 % (37.0-47.0); Hemoglobin 14.1 g/dL (12.0-16.0); Mean Corp Hgb Conc. 34.6 g/dL (33.0-37.0); Mean Corpuscular Hgb 31.8 pg (27.0-31.0); Mean Corpuscular Volume 92.1 fL (81.0-99.0); Mean Platelet Volume 8.9 fL (7.4-10.4); Nucleated Red Blood Cells % 0 %; Platelet Count 335 10^3/uL (130-400); Red Blood Cell Count 4.43 10^6/uL (4.20-5.40); Red Cell Dist. Width 12.4 % (11.5-14.5); White Blood Cell Count 9.3 10^3/uL (4.8-10.8)
[2024-08-06 22:32] LABS: Erythrocyte Sed Rate 1 mm/hour (0-20); HCG, Serum Qualitative Screen Negative
[2024-08-06 22:40] LABS: ALT (SGPT) 14 U/L (0-35); AST (SGOT) 26 U/L (14-36); Alkaline Phosphatase 39 U/L (38-126); Blood Urea Nitrogen 11 mg/dl (7-17); C-Reactive Protein < 5.00 mg/L (0.0-10.00); Calcium 9.1 mg/dl (8.4-10.2); Carbon Dioxide 29 mmol/L (22-30); Chloride 103 mmol/L (98-107); Estimated Creatinine Clearance 110 ml/min; Glucose 85 mg/dl (70-99); Lipase 277 U/L (23-300); Potassium 4.4 mmol/L (3.5-5.1); Sodium 135 mmol/L (135-145); Total Bilirubin 0.6 mg/dl (0.2-1.3); Total Protein 6.4 g/dl (6.3-8.2); eGFR > 60.00
== END 2024-08-06 23:33 | disposition home or self-care (01) ==
LOC: EMR 19:18
PROVIDERS: EMERGENCY PHYSICIAN Student in an Organized Health Care Education/Training Program; FAMILY PHYSICIAN Family Medicine
DX: M54.9 Dorsalgia, unspecified (principal); R10.9 Unspecified abdominal pain; Z79.899 Other long term (current) drug therapy; Z87.442 Personal history of urinary calculi; Z90.49 Acquired absence of other specified parts of digestive tract
CPT/HCPCS: 99284; 74177; 80053; 83690; 84703; 85025; 85652; 86140; Q9967